=== PATIENT | male | born 1990 | race Two or more races ===

== ENCOUNTER 2016-03-18 13:30 | Emergency (ER) | payer OTHER ==
[2016-03-18] MEDS ORDERED: KETOROLAC TROMETHAMINE 60 MG/2 ML VIAL IM ONE (14:49)
--- NOTE | 2016-03-18 14:51 | ED Physician Documentation ---
Upper Extremity Problem - HISTORIAN Historian: patient - HPI Stated Complaint: R wrist pain Chief Complaint: Upper Extremity Problem Location: R wrist Onset: other (today) Timing: worse Recent Injury: No Relieved By: nothing Quality: pain, tenderness Further Comments: yes (25 year old male patient presents with right wrist pain which started this morning. Patient works construction. Denies injury or heavy lifting.) - ROS CONST: no problems EYES/ENT: none CVS/RESP: none GI/: none MS/SKIN/LYMPH: denies: calf pain NEURO/PSYCH: denies: headache - PAST HX Past History: none Other History: none Surgeries/Procedures: none Allergies/Adverse Reactions: Allergies Allergy/AdvReac Type Severity Reaction Status Date / Time No Known Allergies Allergy Verified 03/18/16 13:44 Home Medications: Ambulatory Orders Medication Instructions Recorded Ergocalciferol (Vitamin D2) 50,000 unit PO [id number] 03/18/16 [Vitamin D2] Ketorolac Tromethamine [Toradol] 10 mg PO TID #15 tablet 03/18/16 - SOCIAL HX Smoking History: non-smoker - FAMILY HX Family History: none - VITAL SIGNS Vital Signs: Vital Signs Temp Pulse Resp BP Pulse Ox 98.6 F 71 16 99 03/18/16 13:42 03/18/16 13:42 03/18/16 13:42 03/18/16 13:42 - REVIEWED ASSESSMENTS Nursing Assessment Reviewed: Yes Vitals Reviewed: Yes ED Results Lab/Radiology - Lab Results Lab Results: Lab Results 03/18/16 13:49 Uric Acid 5.5 mg/dL mg/dL (2.0-7.8) - Radiology Radiology Impressions: 3 views of the right wrist History: RT WRIST, PAIN IN LATERAL WRIST X1 DAY, NO KNOWN INJURY Findings: No comparison studies No evidence of acute fracture or dislocation of the right wrist. Joint spaces are preserved. There is mild soft tissue swelling of the right wrist. Impression: 1. No evidence of acute fracture or dislocation right wrist. Joint spaces are preserved - Orders Orders: ED Orders Category Date Time Status WRIST 3 VIEWS OR MORE [RAD] Stat Exams 03/18/16 Taken URIC ACID Stat Lab 03/18/16 13:49 Completed Ketorolac Tromethamine [Toradol] Med 03/18/16 14:49 Discontinued 60 mg IM NOW ONE Upper Extremity Problem - EXAM General Appearance: mild distress Skin: normal color, warm/dry, NR, INT, PAL, DR Wrist Exam: no evidence of injury, normal ROM, soft tissue tenderness, swelling Hand Exam: normal inspection, non-tender, no evidence of injury, normal ROM Neuro/Tendon: normal sensation, normal motor functions, normal tendon functions CVS: reg rate & rhythm Peripheral: sensation nml, motor nml Central: oriented X3, CN's nml as tested, motor nml, sensation nml, mood/affect nml Respiratory: no resp. distress Discharge Clincal Impression: Wrist pain, acute Qualifiers: Laterality: right Qualified Code(s): M25.531 - Pain in right wrist Prescriptions: Ketorolac Tromethamine [Toradol] 10 mg PO TID #15 tablet Referrals: Primary Doctor,No [Primary Care Provider] - 2 Days Home Medications: Ambulatory Orders Ergocalciferol (Vitamin D2) [Vitamin D2] 50,000 unit PO [id number] 03/18/16 Ketorolac Tromethamine [Toradol] 10 mg PO TID #15 tablet 03/18/16 Condition: Stable Disposition: HOME, SELF-CARE Decision to Admit: NO Decision Time: 14:55
--- NOTE | 2016-03-18 15:45 | Diagnostic Imaging Report ---
[facility] [id number] [facility] [address] [address] Report Submission Date: Mar 18, 2016 3:04:01 PM MISSION ANALYST Patient Study Name: SHANIQUA TYSON Date: Mar 18, 2016 2:06:51 PM MISSION ANALYST Modality Type: CR Gender: M Description: UPPER EXTREMITY : 88 Institution: [facility] Physician: SHAMAR JIMENEZ 3 views of the right wrist History: RT WRIST, PAIN IN LATERAL WRIST X1 DAY, NO KNOWN INJURY Findings: No comparison studies No evidence of acute fracture or dislocation of the right wrist. Joint spaces are preserved. There is mild soft tissue swelling of the right wrist. Impression: 1. No evidence of acute fracture or dislocation right wrist. Joint spaces are preserved Electronically signed on Mar 18, 2016 3:04:01 PM MISSION ANALYST by: Onelia RICH
== END 2016-03-18 15:04 | disposition home or self-care (01) ==
LOC: EDSEX 13:30 → ED 13:30
DX: M25.531 Pain in right wrist (principal)
CPT/HCPCS: 36415; 73110; 84550; J1885; 96372; 99283